=== PATIENT | female | born 1990 | race Caucasian/White ===

== ENCOUNTER 2017-01-13 02:05 | Inpatient (IN) | payer MEDICAID ==
--- NOTE | ~2017-01-13 | FD ---
ADMIT: 01/13/2017 RM/LOC: 227 [facility] MR#: [id number] [facility] [address] [place] [id number] ROCA BONNIE ANDREIA [address] [place] [address] Final Diagnosis SEX: F AGE: 26 : 1990 ADMISSION DATE: 01/13/2017 DISCHARGE DATE: 01/14/2017 FINAL DIAGNOSIS: 1. Status post spontaneous vaginal delivery. 2. Obesity. 3. Anemia during . PROCEDURE: 1. Spontaneous vaginal delivery. 2. Removal of epidural catheter. Day Tam MD/ ricardo JOB #: [id number] CC: Day Tam MD, Attending Physician Day Tam MD, Family Physician
[~2017-01-13 02:05] MED LIST: MOTRIN-DPS800 MG PO; NIPPLECREAM TP; PRENATAL VIT1 TAB PO
[2017-01-15] MEDS ORDERED: COLACE-DPS100 MG PO (10:40)
[2017-01-15] MEDS ORDERED: FEOSOL-DPS325 MG PO (10:40)
--- NOTE | 2017-01-19 14:07 | HP ---
ADMIT: 01/13/2017 RM/LOC: 227 [facility] MR#: [id number] [facility] [address] [place], [place] [id number] ANDREIA VARGHESE [address] [place] [address] History and Physical SEX: F AGE: 26 : 1990 DATE OF SERVICE: CHIEF COMPLAINT: Contractions. HISTORY OF PRESENT ILLNESS: This is a 26-year-old, G4, P3-0-0-3 with intrauterine at 39 weeks 6 days via LMP and confirmed with 8 week ultrasound who presented with contractions which started around 8 p.m. last night. She denied leaking of fluid, vaginal bleeding, and reported normal movement at time of presentation. complicated by history of rubella nonimmune and obesity with appropriate weight gain of . PAST MEDICAL HISTORY: 1. Obesity. 2. Rubella non-immune. SURGICAL HISTORY: None. ALLERGIES: NO KNOWN MEDICAL ALLERGIES. MEDICATIONS: 1. vitamin. 2. Iron supplementation. SOCIAL HISTORY: No alcohol use, tobacco use, recreational drug use. She is . FAMILY HISTORY: She has a family history of diabetes in her maternal grandmother. REVIEW OF SYSTEMS: She denies headache, changes in vision, chest pain, shortness of breath. No nausea, vomiting, diarrhea, or constipation. LABS: GBS negative. One-hour glucose tolerance test 145, 3-hour values of 83, 125, 137, 124. Hepatitis B negative. RPR negative. Rubella non immune. Gonorrhea and chlamydia negative. HIV negative. Blood type A positive with antibody screen negative. PHYSICAL EXAM: VITAL SIGNS: Blood pressure 107/61, pulse 91, respiratory rate 16, she is afebrile with an oxygen saturation of 97% on room air. GENERAL: She is alert and comfortable with epidural in place at the time of this exam. HEART: Regular rate and rhythm. LUNGS: Clear to auscultation bilaterally. ABDOMEN: Gravid with estimated weight of 3700 g. EXTREMITIES: She has no edema in bilateral lower extremities. OB: heart rate monitoring baseline is 130, positive accelerations, positive variable decelerations to 100 beats per minute. She is chasidy every 2 minutes at time of presentation. SROM at 0645. ADMIT: 01/13/2017 RM/LOC: 227 [facility] MR#: [id number] [facility] [address] [place], [place] [address] ANDREIA VARGHESE [address] [place] [address] History and Physical SEX: F AGE: 26 : 1990 ASSESSMENT AND PLAN: This is a 26-year-old, 4, para 3-0-0-3 with intrauterine at 39 weeks 6 days who presented to the [facility] with regular contractions, dating by LMP which was consistent with 8 week ultrasound. 1. Admit to the Birthing Center. Consents were obtained for vaginal delivery, assisted vaginal delivery, or section. Blood type A positive. CBC upon admission. 2. heart rate category 1 at presentation, intermittently category 2 for intermittent variables. 3. Maternal well being. She is doing well. Epidural was requested and in place. 4. Anticipate spontaneous vaginal delivery. Kianna Arreola MD Resident / Day Tam MD / socorro JOB #: [id number] CC: Day Tam, Attending Physician Day Tam, Family Physician
--- NOTE | 2017-01-19 14:11 | OR ---
ADMIT: 01/13/2017 RM/LOC: 227 [facility] MR#: [id number] 26[address] [facility] [address] [place], [place] [phone] ABELINO BONNIEANDREIA [address] [place] [address] Operative/Delivery Room Report SEX: F AGE: 26 : 1990 Corrected: 01/14/2017 0658 [id number] SURGERY DATE: 01/13/2017 SURGEON: Day Tam MD PROCEDURE: Spontaneous vaginal delivery. RESIDENT: Kianna Arreola MD Resident. PREPROCEDURE DIAGNOSES: 1. A 26-year-old, G4, P3-0-0-3 with intrauterine at 39 weeks 6 days. 2. Anemia during . 3. Obesity. 4. Rubella nonimmune. POSTPROCEDURE DIAGNOSES: 1. A 26-year-old, G4, P4-0-0-4, status post spontaneous vaginal delivery at 39 weeks 6 days. 2. Anemia during . 3. Rubella nonimmune. 4. Obesity. ESTIMATED BLOOD LOSS: 300 mL. COMPLICATIONS: None. The patient tolerated the procedure well. ANESTHESIA: Epidural. FINDINGS: Viable female with presentation AURELIANO, weight of 3820 g, and score of 9 and 9. Normal placenta with 3-vessel cord. HOSPITAL COURSE AND PROCEDURE IN DETAIL: This is a 26-year-old, G4, P3-0-0-3 with intrauterine at 39 weeks 6 days, who presented to Labor and Delivery with regular contractions. The patient ultimately progressed to complete. The patient was found to be complete and was placed in a dorsal lithotomy position. The patient was prepped and draped in a normal sterile fashion. Expulsive efforts were begun. The infant's head was brought to the perineum and delivered over an intact perineum. The head restituted to the right. No nuchal cord was present. The anterior and posterior shoulder delivered without difficulty. The body followed. The was vigorous and crying and was placed on the maternal abdomen. After 1 minute of delayed cord clamping, the cord was clamped and cut. Cord blood was collected. Cord gas was not collected. The placenta delivered spontaneously with a 3-vessel cord. ADMIT: 01/13/2017 RM/LOC: 227 [facility] MR#: [id number] [address] [facility] [address] [place], [place] [address] ANDREIA VARGHESE [address] [place] [address] Operative/Delivery Room Report SEX: F AGE: 26 : 1990 Pitocin was administered per protocol. Fundus was found to be firm and below the umbilicus. The vagina, perineum, and cervix were inspected for lacerations. No lacerations were present. All tissues were found to be hemostatic. Counts were correct x2. At the completion of the procedure, the patient's epidural catheter was removed by Dr. Day Tam. Catheter tip was found to be intact at the time of removal. The patient tolerated the procedure well. The patient and infant were stable in the mother's room following the procedure. Dr. Day Tam was present for the entire delivery. Kianna Arreola MD Resident / Day Tam MD / socorro JOB #: [id number] CC: Day Tam, Attending Physician Day Tam, Family Physician Corrected: 01/14/2017 0658 [id number]
== END 2017-01-14 13:42 | disposition home or self-care (01) | DRG 775 ==
LOC: 2LDRP 02:05 → BC 02:05 → 2LDRP 02:52 → BC 01-14 08:00 → 2LDRP 01-14 13:42
PROVIDERS: ADMIT Obstetrics & Gynecology
PROC: 10E0XZZ Delivery of Products of Conception, External Approach (ICD-10-PCS; principal; 2017-01-13)
DX: O76 Abnormality in fetal heart rate and rhythm complicating labor and delivery (principal); E66.9 Obesity, unspecified; O99.02 Anemia complicating childbirth; D64.9 Anemia, unspecified; O99.214 Obesity complicating childbirth; Z28.3 Underimmunization status; Z68.38 Body mass index [BMI] 38.0-38.9, adult; Z3A.39 39 weeks gestation of pregnancy; Z37.0 Single live birth